=== PATIENT | female | born 1945 | race Caucasian/White ===

== ENCOUNTER 2017-03-13 12:50 | Inpatient (IN) | payer OTHER, MEDICARE ==
[~2017-03-13] VITALS: Ht 162.6 cm; Wt 71.7 kg
[~2017-03-13 12:50] MED LIST: ALLA266C2 TP; ASCO500T8 PO; BLOO-367 IN; CALC0.253 PO; CLOT15CR35 TP; FERR325T28 PO; HYDR25TA4 PO; INSU100V28 SQ; Ipratropium Bromide IH; LEVA1.2524 NEB; LEVO250T2 PO; LORA10CA PO; LOSA25TA13 PO; METH10TA2 PO; MUPI22OI7; PANT40TA2 PO; PRED20TA PO; Simethicone PO
--- NOTE | 2017-03-13 12:50 | NUR ---
bbra from [facility], for [facility]oc this am, upon arrival, pt is aaox2. nad noted. pt rr even and unlabored. vss. md at bedside for eval.
--- NOTE | 2017-03-13 13:22 | NUR ---
urine obtained sent to lab
[2017-03-13 13:37] LABS: APPEARANCE,URINE Clear (CLEAR); BILIRUBIN,URINE Negative (NEGATIVE); BLOOD, URINE Negative Ery/uL (NEGATIVE); COLOR,URINE Yellow (YELLOW); KETONES,URINE Negative (NEGATIVE); LEUKOCYTE ESTERASE ,URINE Negative (NEGATIVE); NITRITE, URINE Negative (NEGATIVE); PROTEIN,URINE Negative (NEGATIVE); UGLUCOSE Negative (NEGATIVE); UROBILINOGEN,URINE 0.2 EU/dL (0.2)
[2017-03-13] MEDS ORDERED: POTA10TA15 PO (13:49)
[2017-03-13] MEDS ORDERED: VIT1CAPS32 PO (13:49)
[2017-03-13] MEDS ORDERED: LACT10SO PO (13:49)
[2017-03-13] MEDS ORDERED: SPIR25TA4 PO (13:49)
[2017-03-13] MEDS ORDERED: CALC-866 PO (13:49)
[2017-03-13] MEDS ORDERED: FURO-145 PO (13:49)
[2017-03-13] MEDS ORDERED: MIRT15TA PO (13:49)
[2017-03-13] MEDS ORDERED: INSU100V7 SQ (13:49)
[2017-03-13] MEDS ORDERED: NA P133E RC (13:49)
[2017-03-13] MEDS ORDERED: MAGN400O6 PO (13:49)
[2017-03-13] MEDS ORDERED: HYDR-548 PO (13:49)
[2017-03-13] MEDS ORDERED: MAGN400T6 PO (13:49)
[2017-03-13] MEDS ORDERED: FERR-58 PO (13:49)
[2017-03-13] MEDS ORDERED: SIME80TA15 PO (13:49)
[2017-03-13] MEDS ORDERED: CHOL10002 PO (13:49)
[2017-03-13] MEDS ORDERED: BISA10SU8 RC (13:49)
[2017-03-13] MEDS ORDERED: MULT-213 PO (13:49)
[2017-03-13] MEDS ORDERED: ACET-868 PO (13:49)
[2017-03-13] MEDS ORDERED: PANT40TA2 PO (13:49)
--- NOTE | 2017-03-13 13:49 | NUR ---
pt to ct
[2017-03-13 13:51] LABS: HEMATOCRIT 25 % (33-45); HEMOGLOBIN 8.5 g/dL (11.5-14.8); MEAN CORPUSCULAR HEMOGLOBIN 31 PG (26.0-33.0); MEAN CORPUSCULAR HGB CONC 34 g/dl (31.0-36.0); MEAN CORPUSCULAR VOLUME 92 fL (82-100); NEUTROPHILS % (AUTO) 71.2 % (43.0-81.0); PLATELET COUNT (AUTO) 66 /CMM (150-450); RDW COEFFICIENT OF VARIATION 17.3 (11.5-15.0); RED BLOOD CELL COUNT(AUTO) 2.76 MIL/uL (4.0-5.2); WHITE BLOOD COUNT (AUTO) 3.5 K/uL (4.3-11.0)
--- NOTE | 2017-03-13 13:51 | NUR ---
CALLED [employer], NEONATAL SOCIAL WORKER WAS PAGED.
[2017-03-13 13:52] LABS: BASOPHILS % (AUTO) 0.4 % (0.0-2.0); EOSINOPHILS # (AUTO) 0.1 /CMM (0.0-0.7); EOSINOPHILS % (AUTO) 2.1 % (0.0-6.0); LYMPHOCYTES # (AUTO) 0.7 /CMM (0.8-4.8); LYMPHOCYTES % (AUTO) 18.7 % (20.0-44.0); MONOCYTES # (AUTO) 0.3 /CMM (0.1-1.30); MONOCYTES % (AUTO) 7.6 % (2.0-12.0); NEUTROPHILS # (AUTO) 2.5 /CMM (1.8-8.9)
[2017-03-13 13:59] LABS: INR 1.03 (0.87-1.13)
[2017-03-13 14:03] LABS: TROPONIN I < 0.017 ng/mL (0.00-0.056)
[2017-03-13 14:08] LABS: CALCIUM, SERUM 9.5 mg/dL (8.5-10.1); CARBON DIOXIDE 31 mmol/L (21-32); CHLORIDE 111 mmol/L (98-107); CREATININE 1.1 mg/dL (0.6-1.3); GLUCOSE 153 mg/dL (74-106); POTASSIUM 5.8 mmol/L (3.5-5.1); SODIUM SERUM 143 mmol/L (136-145); UREA NITROGEN, BLOOD 48 mg/dL (7-18)
[2017-03-13 14:15] LABS: EOSINOPHILS % (MANUAL) 3 % (0-4); LYMPHOCYTES % (MANUAL) 22 % (16-48); MONOCYTES % (MANUAL) 4 % (0-11.0); NEUTROPHILS % (MANUAL) 71 (42-76)
[2017-03-13] MEDS ORDERED: IV NS 0.9% 1,000 ML BAG IV ONE (14:30)
--- NOTE | 2017-03-13 15:18 | NUR ---
REPORT GIVEN TO ABIDA ANGELA FOR [facility]
--- NOTE | 2017-03-13 15:45 | NUR ---
CERT PHARMACY TECH OPENING NOTE PATIENT WAS ADMITTED TO THE UNIT. PATIENT'S SO AT THE BEDSIDE. PATIENT IS A/O X3, CONFUSED, FORGETFUL OF SPECIFIC DATES. PATIENT PRESENTS WITH IMPAIRED SKIN INTEGRITY (SEE PICTURES IN THE CHART). IV IS PATENT. PATIENTS SPO2 95% ON 2L. NORMAL SINUS BBB HR 67. DENIES SOB/CHEST PAIN. CHEST RAISING EQUALLY BILATERALLY. STABLE, RESTING IN BED. BED IN LOW POSITION, BED ALARM ON, SIDE RAILS X2, DESAI'S POSITION. ALL NEEDS WITHIN REACH. M. D. NOTIFIED OF PATIENT'S ARRIVAL. WILL ROUND Q2H.
[2017-03-13 16:00] VITALS: BP 103/48
[2017-03-13] MEDS: SPIRONOLACTONE 25 MG TABLET PO SCH (16:00)
[2017-03-13] MEDS ORDERED: SODIUM POLYSTYRENE SULFONATE 15 G/60 ML BOTTLE PO ONE (16:00)
[2017-03-13] MEDS: CHOLECALCIFEROL 1,000 UNIT TABLET (VIT D3) PO SCH (16:00)
[2017-03-13] MEDS ORDERED: SIMETHICONE 80 MG TAB.CHEW PO PRN (16:00)
[2017-03-13] MEDS: FERROUS SULFATE (325 MG) 325 MG/TAB TABLET PO SCH (16:00)
[2017-03-13] MEDS: MAGNESIUM OXIDE 400 MG TABLET PO SCH (16:00)
[2017-03-13] MEDS: FUROSEMIDE 20 MG TABLET PO SCH (16:00)
[2017-03-13] MEDS ORDERED: BISACODYL SUPP (10 MG) 10 MG/SUPP.RECT SUPP.RECT RC PRN (16:00)
[2017-03-13] MEDS ORDERED: ACETAMINOPHEN 325 MG TABLET PO PRN ×2 (16:00→21:30)
[2017-03-13] MEDS ORDERED: Medication Not On Formulary EA (Vit C/Vitamin E Acetate/Cranb (Cranberry Concentrate Sof PO SCH (16:00)
--- NOTE | 2017-03-13 16:01 | NUR ---
MS RN NOTES MD LARSON AWARE OF ADMISSION
[2017-03-13] MEDS: CALCIUM CARB 600MG /VIT D 1 EACH TABLET PO SCH (16:40)
[2017-03-13] MEDS: LACTULOSE 10 G/15 ML UDC (PYXIS) PO SCH ×2 (16:40→17:00)
--- NOTE | 2017-03-13 16:58 | NUR ---
BUSINESS SERVICES ASSOCIATECERTIFIED REGISTERED NURSE PRACTITIONER NON-ADMIN NOTE SPOKE TO PATIENT'S CURRENT [facility] NURSE GABRIELA WHO REPORTED PATIENT HAS RECEIVED THE FOLLOWING DAILY MEDICATIONS TODAY ALREADY:(LASIX, MAGNESIUM, FERROUS SULFATE, SPIRONOLACTONE). MEDICATIONS ARE HELD AT THIS TIME.
[2017-03-13] MEDS ORDERED: POTASSIUM CHLORIDE 10 MEQ TABLET.SA PO SCH ×2 (17:00)
[2017-03-13 17:10] VITALS: BP 105/53
--- NOTE | 2017-03-13 17:30 | NUR ---
BOTTOM STOP ATTACHER NOTES NON ADMIN LACTULOSE 1700 THIS WAS JUST GIVEN
[2017-03-13] MEDS: HYDROCODONE/APAP 10/325MG 1 EA TABLET PO PRN (17:49)
--- NOTE | 2017-03-13 18:43 | NUR ---
SENSOR TECHNICIAN NOTES MESSAGE LEFT TO DR LARSON EXCHANGE TO NOTIFY NOT ALL OF ADMISSION ORDERS TRANSFERRED OVER TO ADMISSION
--- NOTE | 2017-03-13 18:52 | NUR ---
HEAD OF QUALITY CLOSING NOTE PATIENT IS RESTING IN BED. PAIN MEDICATION ADMINISTERED, REPORTS DECREASE IN ABDOMINAL PAIN/CRAMPING FROM 8/10 TO4/10. PATIENT REPORTS 4/10 TO BE TOLERABLE PAIN LEVEL. DAUGHTER AT BEDSIDE. PATIENT IS AWAKE, STABLE, ALERT/ORIENTED X3. BED IS LOCKED IN LOW POSITION, SIDE RAILS UP X2. EXTERNAL TELE MONITOR PRESENT :SINUS RHYTHM/ARRHYTHMIA W BBB. SPO2 94% ON 2L. DENIES SOB/CHEST PAIN. ALL NEEDS MET. ALL BELONGINGS/NEEDS WITHIN REACH. CALL LIGHT IN REACH. WILL ENDORSE TO FIELD REIMBURSEMENT MANAGER RN FOR [facility].
--- NOTE | 2017-03-13 19:20 | NUR ---
RN OPEN NOTES RECEIVED PATIENT AWAKE IN BED WITH DAUGHTER AT BEDSIDE. A/O X3 WITH PERIODS OF CONFUSION. ON 2LPM O2 VIA NC. ON TELE MONITORING WITH SR W/ BBB NOTED. IV ACCESS IN RAC PATENT AND INTACT, NO SIGNS OF REDNESS OR INFILTRATION. BED IN LOW LOCKED POSITION WITH SIDE RAILS X2. CALL LIGHT WITHIN REACH. WILL CONTINUE TO MONITOR.
[2017-03-13 20:00] VITALS: BP 112/49
[2017-03-13 20:14] VITALS: BP 112/49
--- NOTE | 2017-03-13 20:30 | NUR ---
RN NOTES PC: ADVISED DR. LARSON, REGARDING MISSING ADMITTING ORDERS, MD SAID HE WILL LOOK INTO IT. NO NEW ORDERS GIVEN. WILL CONTINUE TO MONITOR.
[2017-03-13] MEDS ORDERED: PANTOPRAZOLE 40 MG TABLET.DR PO SCH (21:30)
[2017-03-13] MEDS ORDERED: Z GUARD REMEDY 2 OZ OINT TP PRN (21:30)
[2017-03-13] MEDS ORDERED: HYDROCODONE/APAP 5/325MG 1 EACH TABLET PO PRN (21:30)
[2017-03-13] MEDS ORDERED: ONDANSETRON HCL/PF 4 MG/2 ML VIAL IVP PRN (21:30)
[2017-03-13] MEDS ORDERED: ZOLPIDEM TARTRATE 5 MG TABLET PO PRN (21:30)
[2017-03-13] MEDS ORDERED: MAGNESIUM HYDROXIDE 30 ML UDC PO PRN (21:30)
[2017-03-13] MEDS ORDERED: MAG HYDROX/AL HYDROX/SIMETH 30 ML UDC PO PRN (21:30)
[2017-03-13] MEDS ORDERED: MIRTAZAPINE 15 MG TABLET PO SCH (22:00)
[2017-03-13] MEDS: INSULIN DETEMIR 100 UNIT/ML CARTRIDGE SQ SCH (22:00)
--- NOTE | 2017-03-13 22:30 | NUR ---
RN NOTES PATIENT REFUSED X3, ADMINISTRATION OF REMERON 15MG AND INSERTION OF KAPLAN CATHETER. PER PATIENT SHE DOES NOT TAKE REMERON AT HOME AND DOES NOT LIKE THE WAY THE MEDICATION MAKES HER FEEL. SHE ALSO BEGAN SCREAMING OUT AND CRYING WHEN I ASKED TO INSERT THE F/C STATING SHE DOES NOT NEED IT, AND WHY IS THE MD DOING THIS TO HER. PATIENT EDUCATION REINFORCED. WILL CONTINUE TO MONITOR.
[2017-03-13] MEDS ORDERED: PANTOPRAZOLE 40 MG TABLET.DR PO ONE (23:05)
[2017-03-13] MEDS: BLOOD SUGAR DIAGNOSTIC 1 EACH STRIP IN SCH (23:16)
[2017-03-13] MEDS: IV NS 0.9% 1,000 ML IV PRN (23:48)
[2017-03-14] VITALS: BP 126/58
[2017-03-14 00:06] VITALS: BP 126/58
[2017-03-14 03:40] LABS: BASOPHILS % (AUTO) 0.3 % (0.0-2.0); EOSINOPHILS # (AUTO) 0.1 /CMM (0.0-0.7); HEMATOCRIT 24 % (33-45); LYMPHOCYTES # (AUTO) 0.6 /CMM (0.8-4.8); LYMPHOCYTES % (AUTO) 30.1 % (20.0-44.0); MEAN CORPUSCULAR HEMOGLOBIN 31 PG (26.0-33.0); MEAN CORPUSCULAR HGB CONC 34 g/dl (31.0-36.0); MEAN CORPUSCULAR VOLUME 92 fL (82-100); MONOCYTES # (AUTO) 0.1 /CMM (0.1-1.30); MONOCYTES % (AUTO) 6.5 % (2.0-12.0); NEUTROPHILS # (AUTO) 1.2 /CMM (1.8-8.9); NEUTROPHILS % (AUTO) 60.1 % (43.0-81.0); PLATELET COUNT (AUTO) 58 /CMM (150-450); RDW COEFFICIENT OF VARIATION 17.2 (11.5-15.0); RED BLOOD CELL COUNT(AUTO) 2.58 MIL/uL (4.0-5.2); WHITE BLOOD COUNT (AUTO) 2.1 K/uL (4.3-11.0)
[2017-03-14 03:57] LABS: CALCIUM, SERUM 9.3 mg/dL (8.5-10.1); CARBON DIOXIDE 31 mmol/L (21-32); CHLORIDE 112 mmol/L (98-107); CREATININE 1.1 mg/dL (0.6-1.3); GLUCOSE 180 mg/dL (74-106); MAGNESIUM 2.7 mg/dL (1.8-2.4); PHOSPHORUS 4.1 mg/dL (2.5-4.9); POTASSIUM 4.6 mmol/L (3.5-5.1); SODIUM SERUM 146 mmol/L (136-145); UREA NITROGEN, BLOOD 42 mg/dL (7-18)
[2017-03-14] MEDS: HYDROCODONE/APAP 10/325MG 1 EA TABLET PO PRN ×4 (04:00→18:56)
[2017-03-14 04:14] LABS: CHOLESTEROL 70 mg/dL (<200); HDL CHOLESTEROL 39 mg/dL (40-60); LDL 30 mg/dL (0-99); TRIGLYCERIDES 22 mg/dL (30-150)
[2017-03-14 04:56] LABS: EOSINOPHILS % (MANUAL) 2 % (0-4); LYMPHOCYTES % (MANUAL) 32 % (16-48); MONOCYTES % (MANUAL) 6 % (0-11.0); NEUTROPHILS % (MANUAL) 60 (42-76)
[2017-03-14] MEDS: BLOOD SUGAR DIAGNOSTIC 1 EACH STRIP IN SCH ×4 (07:30→21:53)
--- NOTE | 2017-03-14 07:45 | NUR ---
FUR COMBER OPENING NOTE PLEASE SEE OPENING RN NOTE IN PAPER CHART.
[2017-03-14 08:00] VITALS: BP 133/66
--- NOTE | 2017-03-14 08:25 | NUR ---
POLISHER IMPLANT NOTE SPOKE TO DR LARSON. ASKED IF THE SPIRONOLACTONE AND LASIX SHOULD BE HELD OR ADMINISTERED AT THIS TIME. DR. LARSON INSTRUCTED TO ADMINISTER SPIRONOLOACTONE AND LASIX PRESCRIBED. DR. LARSON INSTRUCTED TO HOLD POTASSIUM PILLS AT THIS TIME.
[2017-03-14] MEDS: SPIRONOLACTONE 25 MG TABLET PO SCH (09:00)
[2017-03-14] MEDS: FUROSEMIDE 20 MG TABLET PO SCH (09:00)
[2017-03-14] MEDS: CALCIUM CARB 600MG /VIT D 1 EACH TABLET PO SCH ×2 (09:00→16:54)
[2017-03-14] MEDS: MAGNESIUM OXIDE 400 MG TABLET PO SCH (09:00)
[2017-03-14] MEDS: FERROUS SULFATE (325 MG) 325 MG/TAB TABLET PO SCH (09:00)
[2017-03-14] MEDS: CHOLECALCIFEROL 1,000 UNIT TABLET (VIT D3) PO SCH (09:00)
[2017-03-14] MEDS: LACTULOSE 10 G/15 ML UDC (PYXIS) PO SCH ×3 (09:00→16:51)
--- NOTE | 2017-03-14 09:30 | NUR ---
SPOKE TO DR. LARSON OVER THE PHONE. REPORTED PATIENT CONDITION BEING AGITATED AND PATIENT TRYING TO GET OUT OF THE BED. PATIENT SCREAMING "MAMA, HELP ME I AM SCARED OF LIFE". SPO2 94% ON 1L. PATIENT IS SCREAMING "I CANT BREATH". NO EVIDENT SIGNS OF LABORED BREATHING/GRUNTING. RECEIVED A TELEPHONE ORDER OF HALDOL 0.5 MG IM ONCE NOW FROM DR. Anatoliy LARSON. ORDER READ BACK AND VERIFIED. ORDER RECORDED.
--- NOTE | 2017-03-14 09:52 | NUR ---
DETONATOR MAKER NOTES "NON ADMIN" MEDICATIONS WERE GIVEN ORDERED. ADMINISTERED ORDERED AND DOCUMENTED IN MEDICAL RECORD
--- NOTE | 2017-03-14 09:59 | NUR ---
PLY SPLICER DR BERG AT THE BEDSIDE. PATIENT AGITATED AND SCREAMING "HELP ME, I AM SCARED OF LIFE". DR BERG MADE A VERBAL ORDER OF SEROQUEL 12.5MG PO Q8 HRS PRN AGITATION. ORDER READ BACK AND VERIFIED. ORDER RECORDED.
[2017-03-14 10:00] VITALS: BP 133/66
[2017-03-14] MEDS ORDERED: HALOPERIDOL LACTATE INJ 5 MG/ML VIAL IM ONE (10:00)
--- NOTE | 2017-03-14 10:11 | NUR ---
ENVIRONMENTAL SERVICES MANAGERREPLANTING MACHINE CREWMAN COM NOTE FOLLOWING MORNING MEDICATIONS WERE ADMINISTERED AND RECORDED ON PAPER FORM PRESENT IN PATIENT'S CHART:MAGNESIUM OXIDE; CALCIUM CARBONATE, SPIRONOLACTONE, FUROSEMIDE;VITAMIN D3; FUROSEMIDE, FERROUS SULFATE.
[2017-03-14 10:24] LABS: THYROID STIMULATING HORMONE 1.461 uIU/mL (0.358-3.74)
[2017-03-14] MEDS: PANTOPRAZOLE 40 MG TABLET.DR PO SCH (10:39)
[2017-03-14] MEDS: QUETIAPINE FUMARATE 25 MG TABLET PO PRN (10:40)
[2017-03-14] MEDS: MULTIVIT, IRON, MIN NO. 8, FA 1 TAB PO SCH (10:47)
[2017-03-14] MEDS ORDERED: DEXTROSE 50%-WATER 50 ML DISP.SYRIN IV PRN (13:00)
--- NOTE | 2017-03-14 13:00 | NUR ---
MS RN NOTES PATIENT NOT WANTING INSULIN AT THIS TIME. EDUCATED ON MEDICATIONS USAGE AND PROBLEMS ASSOCIATED WITH ELEVATED GLUCOSE
--- NOTE | 2017-03-14 13:53 | NUR ---
ms rn notes patient sleeping comfortably at this time. will hold seroquel until patient wakes up.
[2017-03-14] MEDS: IV NS 0.9% 1,000 ML IV PRN (13:54)
[2017-03-14] MEDS: QUETIAPINE FUMARATE 25 MG TABLET PO SCH ×3 (14:20→22:00)
[2017-03-14 16:00] VITALS: BP 130/58
[2017-03-14] MEDS: INSULIN REGULAR, HUMAN 100 UNIT/ML 3 ML VIAL SQ PRN ×3 (17:02→21:59)
--- NOTE | 2017-03-14 17:08 | NUR ---
MS RN NOTES SPOKE WITH DR LARSON AND CONFIRMED HE WOULD LIKE CAROTID DUPLEX ORDERED FOR PATIENT
--- NOTE | 2017-03-14 19:10 | NUR ---
MS RN NOTES RECEIVED PT IN BED, RESTING COMFORTABLY AT THIS TIME. A/O X 3. VERBALLY RESPONSIVE. NO DISTRESS, NO SOB AT THIS TIME. RESPIRATION IS EVEN AND UNLABORED. IV SITE ON RAC INTACT AND PATENT. NO S/S OF INFILTRATION NOTED. IVF INFUSING WELL. NO S/S OF HYPOGLYCEMIA AT THIS TIME. DENIES ANY PAIN OR DISCOMFORT AT THIS TIME. ALL NEEDS ATTENDED AND MET. KEPT COMFORTABLE. CALL LIGHT WITHIN REACH. SAFETY PRECAUTIONS OBSERVED. WILL CONT TO MONITOR.
--- NOTE | 2017-03-14 19:25 | NUR ---
MS RN CLOSING NOTE PATIENT IS RESTING IN BED. PAIN MEDICATION ADMINISTERED, REPORTS DECREASE IN ABDOMINAL PAIN/NECK PAIN FROM 8/10 TO4/10. PATIENT REPORTS 3/10 TO BE TOLERABLE PAIN LEVEL. PATIENT IS RESTING IN BED. ALERT/ORIENTED X3 BED IS LOCKED IN LOW POSITION, SIDE RAILS UP X2. SPO2 94% ON 1L. DENIES SOB/CHEST PAIN. ALL NEEDS MET. ALL BELONGINGS/NEEDS WITHIN REACH. CALL LIGHT IN REACH. WILL ENDORSE TO HYBRID POWERTRAIN DEVELOPMENT ENGINEER RN FOR [facility].
[2017-03-14 20:00] VITALS: BP 120/60
[2017-03-14] MEDS: INSULIN DETEMIR 100 UNIT/ML CARTRIDGE SQ SCH (21:58)
[2017-03-15] MEDS: IV NS 0.9% 1,000 ML IV PRN (05:06)
[2017-03-15] MEDS: BLOOD SUGAR DIAGNOSTIC 1 EACH STRIP IN SCH ×4 (05:54→21:42)
[2017-03-15] MEDS: INSULIN REGULAR, HUMAN 100 UNIT/ML 3 ML VIAL SQ PRN ×4 (05:59→21:47)
--- NOTE | 2017-03-15 06:57 | NUR ---
MS RN NOTES PT IN BED, RESTING COMFORTABLY AT THIS TIME. AROUSES EASILY. A/O X 3. VERBALLY RESPONSIVE. NO DISTRESS, NO SOB AT THIS TIME. RESPIRATION IS EVEN AND UNLABORED. IV SITE ON RAC INTACT AND PATENT. NO S/S OF INFILTRATION NOTED. IVF INFUSING WELL. NO S/S OF HYPOGLYCEMIA AT THIS TIME. DENIES ANY PAIN OR DISCOMFORT AT THIS TIME. GOOD SKIN CARE RENDERED. ALL NEEDS ATTENDED AND MET. KEPT COMFORTABLE. CALL LIGHT WITHIN REACH. SAFETY PRECAUTIONS OBSERVED. WILL ENDORSE TO NEXT SHIFT FOR [facility].
[2017-03-15 08:00] VITALS: BP 138/65
[2017-03-15] MEDS: SPIRONOLACTONE 25 MG TABLET PO SCH (08:27)
[2017-03-15] MEDS: QUETIAPINE FUMARATE 25 MG TABLET PO SCH ×3 (08:27→21:42)
[2017-03-15] MEDS: MULTIVIT, IRON, MIN NO. 8, FA 1 TAB PO SCH (08:27)
[2017-03-15] MEDS: CALCIUM CARB 600MG /VIT D 1 EACH TABLET PO SCH ×2 (08:28→16:46)
[2017-03-15] MEDS: PANTOPRAZOLE 40 MG TABLET.DR PO SCH (08:28)
[2017-03-15] MEDS: LACTULOSE 10 G/15 ML UDC (PYXIS) PO SCH ×3 (08:28→16:46)
[2017-03-15] MEDS: CHOLECALCIFEROL 1,000 UNIT TABLET (VIT D3) PO SCH (08:28)
[2017-03-15] MEDS: MAGNESIUM OXIDE 400 MG TABLET PO SCH (08:28)
[2017-03-15] MEDS: FUROSEMIDE 20 MG TABLET PO SCH (08:28)
[2017-03-15] MEDS: FERROUS SULFATE (325 MG) 325 MG/TAB TABLET PO SCH (08:28)
--- NOTE | 2017-03-15 09:12 | NUR ---
RN OPENING NOTES PATIENT A/OX3. PATIENT FORGETFUL AT TIMES. PATIENT RESTING IN BED AT THIS TIME. PATIENT SCREAMING FOR HELP. PATIENT IS SHOWING S/S OF ACUTE DISTRESS INTERMITTENTLY. PATIENT STATING SHE IS UNABLE TO BREATHE. PATIENT RECEIVING O2 NC @2L. PATIENT O2 SAT IS ADEQUATE AT 96%. LUNGS AUSCULTATED TO FIND DIMINISHED SOUNDS BILATERALLY. PATIENT COMPLAINING OF GENERALIZED PAIN AT THIS TIME. WILL MEDICATE PATIENT WITH PRN PAIN MEDS. PATIENT SHOWS NO S/S OF HYPER/HYPOGLYCEMIA. BED LOCKED IN THE LOWEST POSITION, BED IN SEMIFOWLERS POSITION. CALL LIGHT WITHIN REACH. WILL CONTINUE TO MONITOR PATIENT.
[2017-03-15] MEDS: HYDROCODONE/APAP 10/325MG 1 EA TABLET PO PRN ×2 (10:20→19:48)
[2017-03-15] MEDS: QUETIAPINE FUMARATE 25 MG TABLET PO PRN (13:52)
[2017-03-15] MEDS: MUPIROCIN OINT 2% 22 GM TUBE TP SCH (15:21)
[2017-03-15 15:36] LABS: ALBUMIN 2.5 g/dL (3.4-5.0); BILIRUBIN,DIRECT 0.1 mg/dL (0.0-0.2); BILIRUBIN,TOTAL 0.3 mg/dL (0.2-1.0); TOTAL PROTEIN, SERUM 6.5 g/dL (6.4-8.2)
[2017-03-15 15:51] LABS: THYROID STIMULATING HORMONE 1.611 uIU/mL (0.358-3.74)
--- NOTE | 2017-03-15 15:56 | NUR ---
RN NOTES PATIENT AWAKE RESTING COMFORTABLY IN BED. NO COMPLAINTS OF PAIN AT THIS TIME. PATIENT MEDICATED WITH PRN SEROQUEL AT 1352. PATIENT APPEARS TO BE IN NO ACUTE DISTRESS. PT DENIES SOB AT THIS TIME. WILL CONTINUE TO MONITOR.
[2017-03-15 16:00] VITALS: BP 122/56
--- NOTE | 2017-03-15 19:34 | NUR ---
RN CLOSING NOTES PATIENT IS RESTING QUIETLY IN BED AT THIS TIME. PATIENT HAS NO COMPLAINT OF PAIN AT THIS TIME. PATIENT SATURATING ADEQUATELY WITH O2 RUNNING AT 2L. PATIENT A/OX3. PATIENT HAS MOMENTS OF FORGETFULNESS AND AGITATION. ALL NEEDS MET DURING SHIFT. ALL MEDICATIONS GIVEN. CALL LIGHT WITHIN REACH. PATIENT IN SEMI-DESAI POSITION. BED LOCKED IN THE LOWEST POSITION WITH SIDE RAILS UP X2. WILL GIVE REPORT TO PARTRIDGE FARMER NURSE FOR CONTINUATION OF CARE.
--- NOTE | 2017-03-15 19:35 | NUR ---
MS RN NOTES RECEIVED PT IN BED, AWAKE, WATCHING TV DAUGHTER AT BED SIDE. A/O X 3. VERBALLY RESPONSIVE. NO DISTRESS, NO SOB AT THIS TIME. RESPIRATION IS EVEN AND UNLABORED. IV SITE ON RAC INTACT AND PATENT. NO S/S OF INFILTRATION NOTED. IVF INFUSING WELL. NO S/S OF HYPOGLYCEMIA/ HYPERGLYCEMIA AT THIS TIME. NO C/O PAIN OR DISCOMFORT AT THIS TIME. ALL NEEDS ATTENDED AND MET. KEPT COMFORTABLE. CALL LIGHT WITHIN REACH. SAFETY PRECAUTIONS OBSERVED. WILL CONT TO MONITOR.
[2017-03-15 20:00] VITALS: BP 128/69
[2017-03-15] MEDS: INSULIN DETEMIR 100 UNIT/ML CARTRIDGE SQ SCH (21:48)
[2017-03-16] MEDS: IV NS 0.9% 1,000 ML IV PRN (02:57)
[2017-03-16] MEDS: MUPIROCIN OINT 2% 22 GM TUBE TP SCH ×2 (02:58→14:06)
[2017-03-16] MEDS: BLOOD SUGAR DIAGNOSTIC 1 EACH STRIP IN SCH ×2 (05:50→12:18)
--- NOTE | 2017-03-16 06:34 | NUR ---
MS RN NOTES PT IN BED, RESTING COMFORTABLY AT THIS TIME, AROUSES EASILY. A/O X 3. VERBALLY RESPONSIVE. NO DISTRESS, NO SOB AT THIS TIME. RESPIRATION IS EVEN AND UNLABORED. IV SITE ON RAC INTACT AND PATENT. NO S/S OF INFILTRATION NOTED. IVF INFUSING WELL. NO S/S OF HYPOGLYCEMIA/ HYPERGLYCEMIA AT THIS TIME. NO C/O PAIN OR DISCOMFORT AT THIS TIME. GOOD SKIN CARE PROVIDED. ALL NEEDS ATTENDED AND MET. KEPT COMFORTABLE. CALL LIGHT WITHIN REACH. SAFETY PRECAUTIONS OBSERVED. WILL ENDORSE TO NEXT SHIFT FOR [facility].
--- NOTE | 2017-03-16 07:54 | NUR ---
RN MS NOTES RECEIVED PATIENT IN BED, AWAKE AND VERBALLY RESPONSIVE. NO APPARENT DISTRESS NOTED, DENIES PAIN. RAC IV LINE PATENT INFUSING NS AT 75ML/HR. ALL NEEDS MET, CALL LIGHT WITHIN REACH.
[2017-03-16 08:00] VITALS: BP 123/58
[2017-03-16] MEDS: CHOLECALCIFEROL 1,000 UNIT TABLET (VIT D3) PO SCH (09:22)
[2017-03-16] MEDS: FUROSEMIDE 20 MG TABLET PO SCH (09:22)
[2017-03-16] MEDS: MAGNESIUM OXIDE 400 MG TABLET PO SCH (09:22)
[2017-03-16] MEDS: PANTOPRAZOLE 40 MG TABLET.DR PO SCH (09:22)
[2017-03-16] MEDS: MULTIVIT, IRON, MIN NO. 8, FA 1 TAB PO SCH (09:22)
[2017-03-16] MEDS: CALCIUM CARB 600MG /VIT D 1 EACH TABLET PO SCH (09:22)
[2017-03-16] MEDS: QUETIAPINE FUMARATE 25 MG TABLET PO SCH (09:23)
[2017-03-16] MEDS: SPIRONOLACTONE 25 MG TABLET PO SCH (09:23)
[2017-03-16] MEDS: FERROUS SULFATE (325 MG) 325 MG/TAB TABLET PO SCH (09:23)
[2017-03-16] MEDS: INSULIN REGULAR, HUMAN 100 UNIT/ML 3 ML VIAL SQ PRN (12:19)
[2017-03-16] MEDS ORDERED: LACTULOSE 10 G/15 ML UDC (PYXIS) PO PRN (13:00)
[2017-03-16] MEDS: HYDROCODONE/APAP 10/325MG 1 EA TABLET PO PRN (14:13)
--- NOTE | 2017-03-16 15:44 | NUR ---
RN MS CLOSING NOTES PATIENT LEFT ON A GURNEY, IN STABLE CONDITION VIA AMBULANCE. NO APPARENT DISTRESS NOTED,VERBALLY RESPONSIVE, DENIES PAIN, DENIES SOB. ALL DUE MEDS GIVEN ALL NEEDS MET. IV LINE DISCONTINUED, SKIN ASSESSMENT DONE, PICTURES TAKEN. NOTED WITH SACRAL REDNESS AND DISCOLORATIONS ON BUE. DISCHARGE INSTRUCTIONS REVIEWED WITH PATIENT, SHE STATED UNDERSTANDING.PATIENT HAD NO BELONGINGS, LIST SIGNED. REPORT GIVEN TO ALISA ANGELA FROM [facility].
== END 2017-03-16 15:45 | DRG 73 ==
LOC: ER 12:55 → TELE 15:20 → MED 03-14 11:08
PROVIDERS: ADMIT Internal Medicine; ATTEND Internal Medicine
DX: G90.8 Other disorders of autonomic nervous system (principal); G93.41 Metabolic encephalopathy; E43 Unspecified severe protein-calorie malnutrition; I50.32 Chronic diastolic (congestive) heart failure; D61.818 Other pancytopenia; C22.0 Liver cell carcinoma; I11.0 Hypertensive heart disease with heart failure; K74.60 Unspecified cirrhosis of liver; J44.9 Chronic obstructive pulmonary disease, unspecified; E78.5 Hyperlipidemia, unspecified; E87.5 Hyperkalemia; K21.9 Gastro-esophageal reflux disease without esophagitis; E11.9 Type 2 diabetes mellitus without complications; K59.00 Constipation, unspecified; L30.9 Dermatitis, unspecified; Z79.899 Other long term (current) drug therapy; D50.9 Iron deficiency anemia, unspecified; E66.01 Morbid (severe) obesity due to excess calories; Z22.322 Carrier or suspected carrier of Methicillin resistant Staphylococcus aureus; M81.0 Age-related osteoporosis without current pathological fracture; F06.8 Other specified mental disorders due to known physiological condition
CPT/HCPCS: 36415; 70450-TC; 71010-TC; 80048-TC; 80061-TC; 80076-TC; 81000-TC; 82105; 82140-TC; 82728-TC; 82746; 82962-TC; 83540-TC; 83605-TC; 83735-TC; 84100-TC; 84439-TC; 84443-TC; 84484-TC; 85025-TC; 85730-TC; 87040-TC; 87081-TC; 87086-TC; 93307-TC; 93880-TC; 97001-TC; A4606; J1815; J7030; Z7610